=== PATIENT | female | born 1965 | race African-American/Black ===

== ENCOUNTER 2019-04-10 17:52 | Inpatient (IN) | payer OTHER ==
[2019-04-10] MEDS ORDERED: MVI, Adult with Vitamin K 10 ML, Thiamine 100 MG, Chromium/Copper/Mang/Selen/Zn 1 ML in... IV ONE ×4 (20:19)
[2019-04-10] MEDS ORDERED: Acetaminophen 325 MG Tab PO PRN (20:22)
[2019-04-10] MEDS ORDERED: Ondansetron 4 MG/2 ML SDV IVPUSH PRN (20:22)
[2019-04-10] MEDS ORDERED: Thiamine 200 MG/2 ML MDV ONE (20:39)
[2019-04-10] MEDS ORDERED: Lactated Ringers 1,000 ML ONE (20:39)
[2019-04-10] MEDS ORDERED: MVI, Adult with Vitamin K 10 ML SDV IV ONE (20:39)
[2019-04-10] MEDS ORDERED: Magnesium Sulfate/Water 2 GM in Premix Bag 1 BAG IV ONE (20:44)
[2019-04-10] MEDS: Pantoprazole 40 MG Vial IVPUSH SCH (21:14)
[2019-04-11] MEDS ORDERED: MVI, Adult with Vitamin K 10 ML, Thiamine 100 MG, Chromium/Copper/Mang/Selen/Zn 1 ML in... IV ONE ×4 (00:30)
[2019-04-11] MEDS ORDERED: Thiamine 200 MG/2 ML MDV ONE (01:05)
[2019-04-11] MEDS ORDERED: MVI, Adult with Vitamin K 10 ML SDV IV ONE (01:05)
[2019-04-11] MEDS: Magnesium Sulfate/Water 2 GM in Premix Bag 1 BAG IV SCH ×6 (01:35→23:54)
[2019-04-11] MEDS ORDERED: Iopamidol 612 MG/ML 100 ML Bottle IV ONE (04:15)
[2019-04-11] MEDS ORDERED: Iopamidol 510 MG/ML 50 ML SDV PO ONE (04:15)
--- NOTE | 2019-04-11 06:05 | CRLCT ---
INDICATION: Abdominal pain TECHNIQUE: CT abdomen and pelvis acquired with 50 cc oral contrast and 100 cc IV contrast. COMPARISON: None FINDINGS: Lower chest: Small right pleural effusion. Liver: Hepatic steatosis. Spleen: Unremarkable. Pancreas: Unremarkable. Gallbladder and bile ducts: Unremarkable. Adrenal glands: Unremarkable. Kidneys: Unremarkable. GI tract: Oral contrast material reaches the mid small bowel. Status post gastric bypass procedure. The appendix measures 6.7 mm in diameter. No significant periappendiceal fat stranding. Vascular structures: Unremarkable. Lymph nodes: There is a partially calcified 1.3 cm lymph node in the mesenteric fat on image 81 series 2. Pelvic Organs: Small amount of free fluid in the pelvis, likely physiologic. Bones: Unremarkable for age. IMPRESSION: The appendix is mildly dilated. No significant periappendiceal fat stranding. Early acute appendicitis cannot be excluded. Very mild fat stranding around the pancreatic head. Correlate with lipase to exclude pancreatitis. Small right pleural effusion. Hepatic steatosis. Findings discussed with Anabela Artis RN at 6:02 a.m. on April 11, 2019. Please note that all CT scans at this facility use dose modulation, iterative reconstruction, and/or weight-based dosing when appropriate to reduce radiation dose to as low as reasonably achievable. Dictated by Jacque Hinojosa MD @ Apr 11 2019 5:50AM Signed by Dr. Jacque Hinojosa @ Apr 11 2019 6:03AM
[2019-04-11] MEDS: Dextrose 5%-Lactated Ringers 1,000 ML IV SCH ×2 (06:58→20:13)
[2019-04-11] MEDS: Pantoprazole 40 MG Vial IVPUSH SCH ×2 (08:30→20:21)
--- NOTE | 2019-04-11 09:09 | PN ---
DATE OF SERVICE: 04/11/2019 SUBJECTIVE: Chayito reports that her pain is controlled. Her vital signs have been stable. Her magnesium is being replaced, and she received 2 L of MultiVites, magnesium is being replaced 2 g every 4 hours. Denies nausea. Has had nothing to eat or drink just is not hungry. H. pylori test is pending. REVIEW OF SYSTEMS: Remainder of review of systems negative for any pertinent positives or negatives. LABORATORY DATA: Hemoglobin this morning was 7.4. After she received her IV fluids, phosphorus was 3.5. Total protein 5.2 and albumin is 1.7. OBJECTIVE: GENERAL: Chayito Valentin is a 53-year-old female. She is alert and orientated. She states she does feel a little bit better than she did yesterday, after receiving fluids. VITAL SIGNS: TPR is 96.3, 80, 16, and blood pressure 119/76. HEENT: Negative. NECK: Supple. HEART: Regular rate and rhythm. LUNGS: Clear. ABDOMEN: Soft, remains to be tender in the mid epigastric area. EXTREMITIES: Without peripheral edema. ASSESSMENT: 1. Chronic diarrhea. 2. Low magnesium. 3. Postsurgical malabsorption. 4. Pain in the upper abdomen. 5. Chronic kidney disease. 6. Essential hypertension. Hemoglobin 7.4. 7. History of Irene-en-Y gastric bypass surgery. 8. Malnutrition. PLAN: 1. 2 units of packed red blood cells to be given today. 2. Albumin 50 g daily IV x3 days. 3. Check amylase and lipase and blood already drawn. Nursing staff will put that order in. 4. Check CBC, CMP, and phos in a.m. 5. Schedule and have consent signed for EGD in a.m. 04/12/2019. 6. IV local sedation, Richard Youssef MD. 7. Robinul 0.4 mg IV on-call to OR. 8. Dietary consult and bariatric consult. 9. Step 3 gastric bypass diet. 10.Protein supplements q.i.d. 11.Communication order written to ask if telemetry needs to be continued in a.m. 12.Discontinue continuous pulse ox. 13.We will evaluate p.r.n. or in a.m. Ayaka Avendaño PA-C /[id number]
[2019-04-12] MEDS: Magnesium Sulfate/Water 2 GM in Premix Bag 1 BAG IV SCH ×6 (02:57→21:21)
[2019-04-12] MEDS: Dextrose 5%-Lactated Ringers 1,000 ML IV SCH ×2 (04:24→19:13)
[2019-04-12] MEDS ORDERED: Glycopyrrolate 0.2 MG/ML 2 ML SDV IVPUSH ONE (07:00)
[2019-04-12] MEDS ORDERED: fentaNYL 100 MCG/2 ML SDV ONE (07:15)
[2019-04-12] MEDS ORDERED: Midazolam 1 MG/ML 2 ML SDV ONE (07:15)
[2019-04-12] MEDS ORDERED: Propofol 200 MG/20 ML SDV ONE (07:16)
[2019-04-12] MEDS: Pantoprazole 40 MG Vial IVPUSH SCH ×2 (08:35→21:21)
[2019-04-13] MEDS: Dextrose 5%-Lactated Ringers 1,000 ML IV SCH (03:15)
[2019-04-13] MEDS: Pantoprazole 40 MG Vial IVPUSH SCH (08:12)
--- NOTE | 2019-04-15 12:29 | PN ---
DATE OF SERVICE: 04/12/2019 The patient overnight continued to have some abdominal discomfort. Not much oral intake yesterday around 300 mL. The upper endoscopy was essentially unremarkable other than there was a small amount of bile present in the pouch and Irene limb suggestive of a possible partial small-bowel obstruction. The plan will be to try feeding her today. If that is unsuccessful with recurrent pain, then we may need to consider a diagnostic laparoscopy to evaluate for possible partial small-bowel obstruction, although that was not evident on the CT scan done on 04/11/2019. Her labs are improving today with hemoglobin up a little over 10 after 2 units of packed RBCs. Continue the albumin and magnesium supplementation today and see how we do as far as oral intake. Richard Youssef MD /[id number]
--- NOTE | 2019-04-15 12:50 | DISCH ---
FINAL DIAGNOSES: 1. Bariatric surgery status. 2. Malnutrition and dehydration. 3. Upper abdominal pain. 4. Hypomagnesemia. 5. History of hypertension. OPERATIVE PROCEDURE: Upper GI endoscopy with biopsies of gastric pouch for CLOtest that was done on 04/12/2019. SUMMARY: This is a 53-year-old female, who is a [place] of [facility], who had a Irene-en-Y gastric bypass done in [facility] roughly a year ago. She had not received any significant followup and presented with a combination of abdominal pain, some diarrhea, dehydration, and labs showing marked hypomagnesemia. Following admission, the patient's magnesium was supplemented, and she was rehydrated. An upper endoscopy was obtained on 04/10/2019 which showed essentially normal examination other than a small amount of bile within the pouch which may or may not be significant. Following that, the patient was able to resume reasonably good oral intake, and she will be discharged home after dietary consultation this morning. We will have to get her on a whole array of vitamins as well as magnesium supplementation. We will put her on Protonix 40 mg a day for 1 month in the event that there maybe some component of pouch gastritis contributing to the patient's abdominal discomfort. Her only home medication prior to discharge was amlodipine, and blood pressures running fairly low, that will be held as it had been through the hospitalization. After dietary evaluation, she will be following up with Ayaka Avendaño at [facility] in [place] on 04/24/2019.
--- NOTE | 2019-04-16 13:47 | OR ---
DATE OF PROCEDURE: 04/12/2019 PREOPERATIVE DIAGNOSES: Nausea and abdominal discomfort, status post Irene-en-Y gastric bypass. POSTOPERATIVE DIAGNOSES: Normal upper gastrointestinal endoscopic examination, status post Irene-en-Y gastric bypass, apart from a small amount of bile in pouch and Irene limb suspicious for partial small bowel obstruction. OPERATIVE PROCEDURE: Upper gastrointestinal endoscopy with biopsy of gastric pouch for CLOtest. ANESTHESIA: IV sedation. INDICATIONS FOR PROCEDURE: This is a recently-immigrated [place] who underwent a laparoscopic Irene-en-Y gastric bypass in [facility] roughly a year ago. She presents now with epigastric pain as well as postprandial abdominal discomfort, and a significant excess weight loss along with significant metabolic and electrolyte deficiencies. The plan is to proceed with upper GI endoscopy with biopsies and/or dilation as indicated. Potential risks including bleeding and perforation were discussed with the patient and daughter, and they wished to proceed. DETAILS OF PROCEDURE: The patient was taken to the operating room and placed in a left lateral decubitus position. IV sedation was administered, after which, the upper GI endoscope was passed orally through the length of the esophagus and into gastric pouch, and from there through the gastrojejunostomy roughly 20 cm into the Irene limb. Overall examination was entirely normal with there being normal esophagus, EG junction. The gastric pouch was somewhat larger than we typically see here, but otherwise was not significantly inflamed. The gastrojejunostomy was wide open with no stricturing or significant inflammation. The visualized portion of the Irene limb was unremarkable. The only abnormality noted was that of some scant bile present within the Irene limb and pouch suggestive of some possible partial small bowel obstruction, and this may be related to relatively short Irene limb, for which we do not really have any evidence in terms of its overall length. Scope was then withdrawn, and the procedure then concluded. The plan will be to see how the patient eats over the next 24 hours. If she is able to establish adequate oral intake, we will probably take a wait and see in terms of management. If this fails significantly, then the next step would probably be to proceed with a laparoscopy with possible laparotomy and release of what would likely be a partial small bowel obstruction. Richard Youssef MD /[id number]
[2019-05-10 18:07] LABS: H. PYLORI BREATH TEST Positive (Negative)
== END 2019-04-13 13:30 | disposition home or self-care (01) | DRG 392 ==
LOC: JP.MS 17:52
PROVIDERS: ADMIT Surgery; ATTEND Surgery
PROC: 30233N1 Transfusion of Nonautologous Red Blood Cells into Peripheral Vein, Percutaneous Approach (ICD-10-PCS; 2019-04-11)
PROC: 0DB68ZX Excision of Stomach, Via Natural or Artificial Opening Endoscopic, Diagnostic (ICD-10-PCS; principal; 2019-04-12)
DX: K29.70 Gastritis, unspecified, without bleeding (principal); E46 Unspecified protein-calorie malnutrition; K91.2 Postsurgical malabsorption, not elsewhere classified; E86.0 Dehydration; E83.42 Hypomagnesemia; I12.9 Hypertensive chronic kidney disease with stage 1 through stage 4 chronic kidney disease, or unspecified chronic kidney disease; N18.9 Chronic kidney disease, unspecified; Z68.24 Body mass index [BMI] 24.0-24.9, adult; K52.9 Noninfective gastroenteritis and colitis, unspecified; D64.9 Anemia, unspecified; Z79.899 Other long term (current) drug therapy; Z98.84 Bariatric surgery status
CPT/HCPCS: 36415; 36430; 74177; 80053; 82150; 83013; 83690; 84100; 84443; 85018; 85025; 85027; 86850; 86870; 86900; 86901; 86902; 86920; 86922; 87046; 87081; 87177; 87209; 87493; 87899; 94762; A9270-GY; C9113; J2250; J2704; J3010; J3411; J3475; J7030; J7042; J7120; P9016; P9047; Q9967

== ENCOUNTER 2019-04-10 18:22 | Emergency (ER) | payer SELFPAY ==
--- NOTE | 2019-04-10 19:08 | EDM.PDOC ---
ED HPI GENERAL MEDICAL PROBLEM - General Chief Complaint: Abdominal Pain Stated Complaint: HAS TO BE CLEARED Time Seen by Provider: 04/10/19 19:00 Source of Information: Reports: Patient - History of Present Illness INITIAL COMMENTS - FREE TEXT/NARRATIVE: 53-year-old female was sent from [place] for a direct admission to the surgical department. However on her evaluation check in it was found she had a visit to [facility] about 3 weeks ago. This triggered the ebola risk assessment. She was sent to the emergency room for clearance. Her only symptoms are persistent but worsening discomfort and diarrhea after eating. She's had no fever, headache, shortness of breath or cough. Initially labs were ordered that are routine for screening for infectious disease, however after consultation with the [facility] it was found that she is out of the risk window. Onset: Gradual Duration: Week(s): (Symptoms have been ongoing for several weeks) Associated Symptoms: Reports: Other (Diarrhea). Denies: Fever/Chills, Headaches - Related Data Allergies Allergy/AdvReac Type Severity Reaction Status Date / Time No Known Allergies Allergy Verified 04/10/19 18:31 Home Meds: Home Meds Ascorbate Calcium [Vitamin C] 500 mg PO DAILY 04/10/19 [History] Multivitamin [One Daily Essential] 1 tab PO DAILY 04/10/19 [History] amLODIPine [Norvasc] 10 mg PO DAILY 04/10/19 [History] Past Medical History Cardiovascular History: Reports: Hypertension Respiratory History: Reports: Sleep Apnea Other Gastrointestinal History: gout [employer] History: Reports: - Past Surgical History GI Surgical History: Reports: Bariatric Procedure, Other (See Below) Other GI Surgeries/Procedures: hemarrhoidectomy Social & Family History - Tobacco Use Smoking Status *Q: Never Smoker - Caffeine Use Caffeine Use: Reports: Soda, Tea - Recreational Drug Use Recreational Drug Use: No ED ROS GENERAL - Review of Systems Review Of Systems: See Below Constitutional: Denies: Fever, Chills Respiratory: Denies: Shortness of Breath Cardiovascular: Denies: Chest Pain GI/Abdominal: Reports: Abdominal Pain (After eating), Diarrhea. Denies: Nausea , Vomiting : Reports: No Symptoms Neurological: Denies: Headache ED EXAM, GENERAL - Physical Exam Exam: See Below Exam Limited By: No Limitations General Appearance: Alert, No Apparent Distress Respiratory/Chest: No Respiratory Distress Cardiovascular: Regular Rate, Rhythm GI/Abdominal: Soft, Non-Tender Skin Exam: Warm, Dry Course - Vital Signs Last Recorded V/S: Last Vital Signs Temp 97.6 F 04/10/19 18:29 Pulse 112 H 04/10/19 18:29 Resp 20 04/10/19 18:29 BP 132/80 04/10/19 18:29 Pulse Ox 100 04/10/19 18:29 - Re-Assessments/Exams Free Text/Narrative Re-Assessment/Exam: 04/10/19 19:09 Labs are were initially ordered were canceled. Patient will resume her admit status to surgery as planned. Departure - Departure Time of Disposition: 19:40 Disposition: Admitted As Inpatient 67 Clinical Impression: Abdominal pain Qualifiers: Abdominal location: upper abdomen, unspecified Qualified Code(s): R10.10 - Upper abdominal pain, unspecified - Discharge Information Referrals: PCP,None [Primary Care Provider] - Forms: ED Department Discharge Care Plan Goals: Admit to inpatient surgical services for evaluation of persistent postprandial abdominal pain.
== END 2019-04-10 19:15 | disposition critical access hospital (66) ==
LOC: JP.ED 18:22
DX: R10.10 Upper abdominal pain, unspecified (principal)
CPT/HCPCS: 99284